=== PATIENT | male | born 1985 ===

== ENCOUNTER 2024-12-14 15:53 | Emergency (ER) | payer OTHER, BC ==
[~2024-12-14] VITALS: Ht 182.9 cm; Wt 90.7 kg
[2024-12-17 12:08] LABS: HIV 1,2 COMBO ANTIGEN/ANTIBODY Negative (Negative)
[2024-12-17 12:21] LABS: HEPATITIS B SURFACE ANTIBODY 3.63 IU/L
[2024-12-17 17:28] LABS: HCV QNT BY NAAT (IU/ML) Not Detected; HCV QNT BY NAAT (LOG IU/ML) Not Detected; HCV QNT BY NAAT INTERP Not Detected (Not Detected)
== END 2024-12-14 16:17 | disposition other institution (70) ==
LOC: ER 15:53
PROVIDERS: Student in an Organized Health Care Education/Training Program
DX: Z77.21 Contact with and (suspected) exposure to potentially hazardous body fluids (principal)
CPT/HCPCS: 84460; 87389; 87522